=== PATIENT | female | born 1950 | race Caucasian/White ===

== ENCOUNTER 2019-03-30 21:45 | Emergency (ER) | payer OTHER, MEDICARE ==
[~2019-03-30] VITALS: Ht 154.9 cm; Wt 116.1 kg
[~2019-03-30 21:45] MED LIST: ARIXTRA SC; COLACE 100 MG100 MG PO; DIOVAN HCT 1601 EAC1 PO; OXYCONTIN10 M1 PO; OXYIR5 MG PO
[2019-03-30] MEDS ORDERED: LOSARTAN-HCTZ1 EAC1 PO (21:59)
[2019-03-30] MEDS ORDERED: CYMBALTA20 MG PO (21:59)
[2019-03-30] MEDS ORDERED: TUMS PO (22:00)
[2019-03-30] MEDS ORDERED: POTASSIUM20 PO (22:00)
[2019-03-30] MEDS ORDERED: METAMUCIL1 EAC1 PO (22:00)
[2019-03-30] MEDS ORDERED: MAGOX 400400 MG PO (22:00)
[2019-03-30 22:48] LABS: URINE BILIRUBIN NEGATIVE (Negative); URINE BLOOD NEGATIVE (Negative); URINE CLARITY CLEAR; URINE COLOR YELLOW; URINE GLUCOSE-RANDOM NEGATIVE (Negative); URINE KETONES NEGATIVE (Negative); URINE LEUKOCYTES-REFLEX 1+ (Negative); URINE NITRITE-REFLEX NEGATIVE (Negative); URINE PROTEIN NEGATIVE (Negative); URINE UROBILINOGEN 0.2 E.U./dl (0.2-1.0)
[2019-03-30 22:54] LABS: BACTERIA-REFLEX >30 Many /HPF (None Seen); CASTS None Seen /LPF (None Seen); CRYSTALS None Seen /LPF (None Seen); MUCUS 0-3 Light strn/LPF (None Seen); SQUAMOUS 4-10 Moderate /LPF (0-3); URINE RBC 0-2 Rare /HPF (0-2); URINE WBC-REFLEX 6-15 Few /HPF (0-5); WBC CLUMPS Few (None Seen)
[2019-03-30] MEDS ORDERED: MEDROLDOSEPACK PO (22:55)
[2019-03-30] MEDS ORDERED: LIDODERM1 EACH TRANSDERM (22:55)
[2019-03-30] MEDS ORDERED: KEFLEX500 M1 PO (22:56)
[2019-03-30 23:17] VITALS: BP 154/75
== END 2019-03-30 23:19 | disposition home or self-care (01) ==
LOC: M.ERS 21:45
PROVIDERS: Physician Assistant
DX: M54.5 Low back pain (principal); N39.0 Urinary tract infection, site not specified; I10 Essential (primary) hypertension